=== PATIENT | male | born 1990 | race Two or more races ===

== ENCOUNTER 2020-06-20 19:53 | Emergency (ER) | payer OTHER, SELFPAY ==
[~2020-06-20] VITALS: Ht 177.8 cm; Wt 89.0 kg
[2020-06-20 20:03] VITALS: BP 122/89
--- NOTE | 2020-06-20 21:59 | NUR ---
PT AGITATED IN LOBBY. STATES "I NEED TO BE SEEN BY A DOCTOR RIGHT NOW. IF NOT, I'M LEAVING." STAFF APOLOGIZED TO PT ABOUT THE WAIT TIME AND INFORMED HIM THAT HE SHOULD BE SEEN BY A DOCTOR TO RECEIVE A CLINICAL DIAGNOSIS. PT ASKED "CAN IT GET WORSE?" STAFF STATED THAT THERE IS A POSSIBILITY THAT IT CAN GET WORSE WITHOUT PROPER CARE AND HE SHOULD REALLY WAIT TO SEE A PROVIDER FOR MORE INFORMATION. PT STATED THAT HE "ISN'T LIKE OTHER PEOPLE TODAY AND DOESN'T THINK HE SHOULD WAIT LONG." AGAIN, STAFF APOLOGIZED FOR WAIT TIME. STAFF WITNESSED PT WALK OUT OF ED AT [id number].
== END 2020-06-20 22:06 | disposition left against medical advice (07) ==
LOC: ED 20:30
DX: R10.31 Right lower quadrant pain (principal); X50.0XXA Overexertion from strenuous movement or load, initial encounter; Y93.89 Activity, other specified; Y92.89 Other specified places as the place of occurrence of the external cause; Y99.8 Other external cause status
CPT/HCPCS: 74018; 99283